=== PATIENT | female | born 1970 | race Caucasian/White ===

== ENCOUNTER → 2016-11-16 | Outpatient (CLI) | payer BC ==
[~2016-11-16] MED LIST: CLARITIN; PRENATAL VITAMI1 TA5 PO
== END ==
LOC: MC.RAD 11:11
DX: Z12.31 Encounter for screening mammogram for malignant neoplasm of breast (principal)

== ENCOUNTER 2017-07-01 23:10 | Emergency (ER) | payer BC ==
[~2017-07-01] VITALS: Ht 177.8 cm; Wt 77.3 kg
[2017-07-01 23:13] VITALS: BP 111/70; TEMP 99.4
[2017-07-01] MEDS ORDERED: 00186-0370-20 IH (23:47)
[2017-07-01] MEDS ORDERED: LEVAQUIN 5500 MG/TA1 PO (23:48)
[2017-07-01] MEDS ORDERED: PROAIR HFA0.09 MG/AC IH (23:48)
[2017-07-01] MEDS ORDERED: SINGULAIR 110 MG/TAB PO (23:48)
[2017-07-02 00:36] VITALS: PULSE 113
== END 2017-07-02 00:37 | disposition home or self-care (01) ==
LOC: COL.ER 23:10
DX: J20.9 Acute bronchitis, unspecified (principal); J45.909 Unspecified asthma, uncomplicated
CPT/HCPCS: J1885; J7030

== ENCOUNTER → 2017-11-26 | Outpatient (CLI) | payer BC ==
[~2017-11-26] MED LIST changes: +00186-0370-20 IH; +LEVAQUIN 5500 MG/TA1 PO; +PROAIR HFA0.09 MG/AC IH; +SINGULAIR 110 MG/TAB PO
== END ==
LOC: MC.RAD 09:39
DX: Z12.31 Encounter for screening mammogram for malignant neoplasm of breast (principal)

== ENCOUNTER → 2020-05-05 | Outpatient (CLI) | payer BC | LOC: MC.RAD 06:58 | DX: Z12.31 Encounter for screening mammogram for malignant neoplasm of breast (principal) ==